=== PATIENT | female | born 1970 | race Caucasian/White ===

== ENCOUNTER 2019-08-06 16:19 | Emergency (ER) | payer OTHER ==
[~2019-08-06] VITALS: Ht 170.2 cm; Wt 66.7 kg
[2019-08-06] MEDS ORDERED: NORCO 5-325 TA1 EAC1 PO (17:53)
[2019-08-06 18:20] VITALS: BP 159/69
== END 2019-08-06 18:18 | disposition home or self-care (01) ==
LOC: ER 16:19
DX: S52.614A Nondisplaced fracture of right ulna styloid process, initial encounter for closed fracture (principal); S52.591A Other fractures of lower end of right radius, initial encounter for closed fracture; W01.0XXA Fall on same level from slipping, tripping and stumbling without subsequent striking against object, initial encounter; Y93.E5 Activity, floor mopping and cleaning; Y92.89 Other specified places as the place of occurrence of the external cause; Y99.9 Unspecified external cause status

== ENCOUNTER 2019-08-24 06:31 | Emergency (ER) | payer OTHER ==
[~2019-08-24] VITALS: Ht 170.2 cm; Wt 65.8 kg
[~2019-08-24 06:31] MED LIST: NORCO 5-325 TA1 EAC1 PO
[2019-08-24 06:35] VITALS: BP 145/97
[2019-08-24] MEDS ORDERED: SENNA-DOCUSATE1 EAC1 PO (07:18)
[2019-08-24] MEDS ORDERED: NORCO 5-325 TA1 EAC1 PO (07:18)
[2019-08-24] MEDS ORDERED: IBUPROFEN 600600 M1 PO (07:18)
== END 2019-08-24 07:31 | disposition home or self-care (01) ==
LOC: ER 06:31
DX: S52.501D Unspecified fracture of the lower end of right radius, subsequent encounter for closed fracture with routine healing (principal); S52.602D Unspecified fracture of lower end of left ulna, subsequent encounter for closed fracture with routine healing; Z46.89 Encounter for fitting and adjustment of other specified devices; Z79.899 Other long term (current) drug therapy; X58.XXXD Exposure to other specified factors, subsequent encounter

== ENCOUNTER 2019-09-04 00:33 | Emergency (ER) | payer OTHER ==
[~2019-09-04 00:33] MED LIST changes: +IBUPROFEN 600600 M1 PO; +SENNA-DOCUSATE1 EAC1 PO
== END 2019-09-04 00:52 | disposition left against medical advice (07) ==
LOC: ER 00:33
DX: M79.602 Pain in left arm (principal); M79.601 Pain in right arm; Z53.21 Procedure and treatment not carried out due to patient leaving prior to being seen by health care provider

== ENCOUNTER 2019-09-06 05:02 | Emergency (ER) | payer OTHER ==
[~2019-09-06] VITALS: Ht 170.2 cm; Wt 67.1 kg
[2019-09-06] MEDS ORDERED: NOHOMEMEDICATIONS (05:08)
[2019-09-06] MEDS ORDERED: NORCO 5-325 TA1 EAC2 PO (05:32)
[2019-09-06 05:50] VITALS: BP 111/64
== END 2019-09-06 05:50 | disposition home or self-care (01) ==
LOC: ER 05:02
DX: S52.501D Unspecified fracture of the lower end of right radius, subsequent encounter for closed fracture with routine healing (principal); R20.2 Paresthesia of skin; F17.210 Nicotine dependence, cigarettes, uncomplicated; W19.XXXD Unspecified fall, subsequent encounter